=== PATIENT | male | born 1960 | race Caucasian/White ===

== ENCOUNTER 2016-08-18 07:49 | Day surgery (SDC) | payer OTHER ==
[2016-08-12 15:25] VITALS: BMI 28.0
--- NOTE | 2016-08-18 01:50 | P.GSHP ---
History of Present Illness H&P Date: 08/18/16 CHIEF COMPLAINT: GERD and colon screen HISTORY OF PRESENT ILLNESS: The patient is a 56-year-old male who presents reports gastroesophageal reflux disease and need for colon screen. Upper and lower endoscopy were offered for further evaluation and management. PAST MEDICAL HISTORY: Please see list. PAST SURGICAL HISTORY: Please see list. MEDICATIONS: Please see list. ALLERGIES: Please see list. SOCIAL HISTORY: No illicit drug use FAMILY HISTORY: No reports of Crohn disease or ulcerative colitis. REVIEW OF ORGAN SYSTEMS: CONSTITUTIONAL: No reports of fevers or chills. GI: Denies any blood in stools or constipation. PHYSICAL EXAM: VITAL SIGNS: Stable GENERAL: Well-developed pleasant in no acute distress. HEENT: No scleral icterus. Extraocular movements grossly intact. Moist buccal mucosa. NECK: Supple without lymphadenopathy. CHEST: Unlabored respirations. Equal bilateral excursions. CARDIOVASCULAR: Regular rate and rhythm. Distal 2+ pulses. ABDOMEN: Soft, nondistended. MUSCULOSKELETAL: No clubbing, cyanosis, or edema. ASSESSMENT: 1. Gastroesophageal reflux disease 2. Colon screen. PLAN: 1. Recommend proceeding with an upper and lower endoscopy Past Medical History Past Medical History: GERD/Reflux, Hypertension, Osteoarthritis (OA) History of Any Multi-Drug Resistant Organisms: None Reported Past Surgical History: Back Surgery Additional Past Surgical History / Comment(s): laminectomy x2- 1991,1994 Past Anesthesia/Blood Transfusion Reactions: Family History of Problems w/ Anesthesia Additional Past Anesthesia/Blood Transfusion Reaction / Comment(s): mother experienced memory loss returned after 2 weeks Smoking Status: Former smoker Past Alcohol Use History: Rare Additional Past Alcohol Use History / Comment(s): smoked 20 years 1ppd quit 1999 Past Drug Use History: None Reported - Past Family History Sister(s) Family Medical History: Cancer Additional Family Medical History / Comment(s): ovarian Medications and Allergies Home Medications Medication Instructions Recorded Confirmed Type Fish Oil/Dha/Epa [Fish Oil 1,200 1 each PO DAILY 08/12/16 08/12/16 History mg Fish Oil] Meloxicam [Mobic] 15 mg PO HS 08/12/16 08/12/16 History amLODIPine [Norvasc] 10 mg PO HS 08/12/16 08/12/16 History Allergies Allergy/AdvReac Type Severity Reaction Status Date / Time cephalexin [From Keflex] Allergy Rash/Hives Verified 08/12/16 15:06
[~2016-08-18 07:49] MED LIST: LACTATED RINGERS 1,000 ML IV SCH; LIDOCAINE 1% 20 ML VIAL (10MG/ML) FOR IV START INTRADERMA PRN
[2016-08-18 08:40] VITALS: TEMP 98
[2016-08-18] MEDS ORDERED: LIDOCAINE 1% 20 ML VIAL (10MG/ML) FOR IV START INTRADERMA ONE (08:40)
[2016-08-18] MEDS ORDERED: LACTATED RINGERS 1,000 ML IV ONE (08:40)
[2016-08-18] MEDS ORDERED: LIDOCAINE 1% INJ 10MG/ML (20 ML MDV) ONE (08:59)
[2016-08-18] MEDS ORDERED: GLYCOPYRROLATE 0.2 MG/ML 2 ML VIAL ONE (08:59)
[2016-08-18] MEDS ORDERED: PROPOFOL 10 MG/ML 20 ML VIAL IV ONE (08:59)
[2016-08-18 09:38] VITALS: RESP 16
--- NOTE | 2016-08-18 09:40 | P.PCN ---
Date of Procedure: 08/18/16 Description of Procedure: PREOPERATIVE DIAGNOSIS: Gastroesophageal reflux disease. POSTOPERATIVE DIAGNOSIS: Diaphragmatic hiatal hernia. Gastroesophageal reflux disease. Gastritis, antrum. OPERATION: Esophagogastroduodenoscopy with biopsies along antrum. SURGEON: Elida Ennis MD ANESTHESIA: MAC. INDICATIONS: The patient is a 56-year-old female who presents with a history of reflux disease. Benefits and risks of the procedure were described. Informed consent was obtained. DESCRIPTION: The patient was brought into the endoscopy suite and laid in the left lateral decubitus position. An Olympus gastroscope was passed along the posterior oropharynx down to the distal esophagus where the squamocolumnar junction was encountered at 37 cm from the incisors. The stomach was entered and minimal bile reflux was found. Additional findings are listed below. Biopsies with cold forceps were obtained of the antrum. The first through third portion of the duodenum was examined and unremarkable. Retroflexion of the scope confirmed Hill grade 4 lower esophageal valve. The squamocolumnar junction demostrated LA grade B erosive esophagitis. The stomach was desufflated. The patient tolerated the procedure well. FINDINGS: Squamocolumnar junction 37 cm from the incisors. Diaphragmatic hiatus, 39 cm from the incisors. Diaphragmatic hiatal hernia, 2 cm. Hill grade 4 lower esophageal valve. LA grade B erosive esophagitis. Mild gastritis. No active duodenitis. RECOMMENDATIONS: Further recommendations pending results of pathology report. Upper endoscopy as needed.
--- NOTE | 2016-08-18 09:43 | P.PCN ---
Date of Procedure: 08/18/16 Description of Procedure: PREOPERATIVE DIAGNOSIS: Colonoscopy screening. Personal history of colon polyps. POSTOPERATIVE DIAGNOSIS: Colonoscopy screening. Personal history of colon polyps. Benign colon neoplasms, multiple. OPERATION: Colonoscopy to the ileocecal valve and appendiceal orifice. Colonoscopy with multiple cold forceps biopsies. SURGEON: Elida Ennis MD. ANESTHESIA: MAC. INDICATIONS: The patient is a 56-year-old male who presents for colonoscopy screening. His last colonoscopy was 2-3 years ago. Benefits and risks were described and informed consent was obtained. DESCRIPTION OF PROCEDURE: The patient had undergone Gatorade, MiraLAX and Dulcolax prep. He had been brought into the operating room and laid in the left lateral decubitus position. After adequate intravenous sedation, the rectum was examined with 2% lidocaine jelly. No external hemorrhoids were encountered. The rectal tone was within normal limits. The prostate was smooth and without nodularity. No lesions were palpated in the rectal vault. An Olympus colonoscope was advanced until the ileocecal valve and appendiceal orifice were clearly viewed. The prep was good with visualization of the mucosal folds. The scope was removed with visualization of each mucosal fold. No scattered diverticulosis was encountered. Multiple colonic polyps were found and cold forcep biopsy to completion. No evidence of focal colitis was found. Retroflexion of the scope demonstrated grade 1 internal hemorrhoids without active bleeding or inflammation. The colon was desufflated. The patient had tolerated the procedure well. Withdrawal time was over 6 minutes. FINDINGS: Internal hemorrhoids, grade 1 No prolapsed external hemorrhoids, grade 2. No arteriovenous malformations. Removal of 4 polyps from the proximal, mid transverse colon and descending colon : - Cold forceps biopsy at 30 cm from the anal verge, 4 mm polyp. - Cold forceps biopsy at 20 cm from the anal verge, 5 mm polyp. - Cold forceps biopsy at 15 x 2 cm from the anal verge, 3 mm polyp. No focal colitis. RECOMMENDATIONS: Repeat colonoscopy in 3 years, 2019. Plan - Discharge Summary Discharge Medication List Fish Oil/Dha/Epa [Fish Oil 1,200 mg Fish Oil] 1 each PO DAILY 08/12/16 [History] Meloxicam [Mobic] 15 mg PO HS 08/12/16 [History] amLODIPine [Norvasc] 10 mg PO HS 08/12/16 [History] Follow up Appointment(s)/Referral(s): Elida Ennis MD [STAFF PHYSICIAN] - 08/31/16 ([place], please call to confirm time) Patient Instructions/Handouts: Hiatal Hernia (GEN), Gastroesophageal Reflux Disease (DC) Activity/Diet/Wound Care/Special Instructions: Follow-up colonoscopy in 3 years, 2019 Discharge Disposition: HOME SELF-CARE
[2016-08-18 10:05] VITALS: BP 132/90; PULSE 61
== END 2016-08-18 10:45 | disposition home or self-care (01) ==
LOC: ORWHC2ENDO 07:49
PROVIDERS: ATTEND Surgery Plastic and Reconstructive Surgery
DX: Z12.11 Encounter for screening for malignant neoplasm of colon (principal); Z86.010 Personal history of colon polyps; D12.6 Benign neoplasm of colon, unspecified; K63.5 Polyp of colon; K64.0 First degree hemorrhoids; K29.50 Unspecified chronic gastritis without bleeding; K21.0 Gastro-esophageal reflux disease with esophagitis; K44.9 Diaphragmatic hernia without obstruction or gangrene; I10 Essential (primary) hypertension; M19.90 Unspecified osteoarthritis, unspecified site; Z79.899 Other long term (current) drug therapy; Z88.1 Allergy status to other antibiotic agents; Z87.891 Personal history of nicotine dependence
CPT/HCPCS: 88305; 88342; 45380; 43239; J2001; J2704; 45385

== ENCOUNTER → 2019-11-14 | Day surgery (SDC) | payer BC, OTHER ==
[2019-11-12 11:37] VITALS: BMI 28.5
[~2019-11-14] MED LIST changes: +LIDOCAINE 1% (10MG/ML) FOR IV START INTRADERMA PRN; -LIDOCAINE 1% 20 ML VIAL (10MG/ML) FOR IV START INTRADERMA PRN; +PROPOFOL 10 MG/ML 20 ML VIAL IV ONE
--- NOTE | 2019-11-14 08:07 | P.GSHP ---
History of Present Illness H&P Date: 11/14/19 CHIEF COMPLAINT: Colon screen HISTORY OF PRESENT ILLNESS: The patient is a 59-year-old male who presents for colon screen. Lower endoscopy was offered for further evaluation and management. PAST MEDICAL HISTORY: Please see list. PAST SURGICAL HISTORY: Please see list. MEDICATIONS: Please see list. ALLERGIES: Please see list. SOCIAL HISTORY: No illicit drug use FAMILY HISTORY: No reports of Crohn disease or ulcerative colitis. REVIEW OF ORGAN SYSTEMS: CONSTITUTIONAL: No reports of fevers or chills. PHYSICAL EXAM: VITAL SIGNS: Stable GENERAL: Well-developed pleasant in no acute distress. HEENT: No scleral icterus. Extraocular movements grossly intact. Moist buccal mucosa. NECK: Supple without lymphadenopathy. CHEST: Unlabored respirations. Equal bilateral excursions. CARDIOVASCULAR: Regular rate and rhythm. Distal 2+ pulses. ABDOMEN: Soft, nontender, nondistended. MUSCULOSKELETAL: No clubbing, cyanosis, or edema. ASSESSMENT: 1. Colon screen. PLAN: 1. Recommend proceeding with a lower endoscopy Past Medical History Past Medical History: GERD/Reflux, Hyperlipidemia, Hypertension, Osteoarthritis (OA) History of Any Multi-Drug Resistant Organisms: None Reported Past Surgical History: Back Surgery Additional Past Surgical History / Comment(s): laminectomy x2- 1991,1994. COLONOSCOPY Past Anesthesia/Blood Transfusion Reactions: Family History of Problems w/ Anesthesia Additional Past Anesthesia/Blood Transfusion Reaction / Comment(s): mother experienced memory loss returned after 2 weeks Smoking Status: Former smoker - Past Family History Sister(s) Family Medical History: Cancer Additional Family Medical History / Comment(s): ovarian Medications and Allergies Home Medications Medication Instructions Recorded Confirmed Type Fish Oil/Dha/Epa [Fish Oil 1,200 1 each PO DAILY 08/12/16 11/12/19 History mg Fish Oil] Meloxicam [Mobic] 15 mg PO HS 08/12/16 11/12/19 History amLODIPine [Norvasc] 10 mg PO HS 08/12/16 11/12/19 History Ascorbic Acid [Vitamin C] 1,000 mg PO DAILY 11/12/19 11/12/19 History Ezetimibe [Zetia] 10 mg PO DAILY 11/12/19 11/12/19 History Gemfibrozil [Lopid] 600 mg PO AC-BID 11/12/19 11/12/19 History Omeprazole [PriLOSEC] 20 mg PO AC-BRKFST 11/12/19 11/12/19 History Allergies Allergy/AdvReac Type Severity Reaction Status Date / Time cephalexin [From Keflex] Allergy Rash/Hives Verified 11/12/19 11:29
--- NOTE | 2019-11-14 08:57 | P.PCN ---
Date of Procedure: 11/14/19 Description of Procedure: PREOPERATIVE DIAGNOSIS: Personal history of colon polyps POSTOPERATIVE DIAGNOSIS: Tubular adenoma transverse colon Tubular adenoma descending colon Tubular adenoma sigmoid colon Sigmoid diverticulosis Internal hemorrhoids, grade 2 OPERATION: Colonoscopy to the ileocecal valve and appendiceal orifice, cecum Colonoscopy with cold forceps biopsies SURGEON: Elida Ennis MD. ANESTHESIA: MAC. INDICATIONS: The patient is an 59-year-old male who presents with personal history of colon polyps. Last colonoscopy 5 years. Benefits and risks were described and informed consent was obtained. DESCRIPTION OF PROCEDURE: The patient had undergone Suprep. He had been brought into the operating room and laid in the left lateral decubitus position. After adequate intravenous sedation, the rectum was examined with 2% lidocaine jelly. The prostate was unremarkable. External hemorrhoids were encountered. The rectal tone was within normal limits. No lesions were palpated in the rectal vault. An Olympus colonoscope was advanced until the cecum, ileocecal valve and appendiceal orifice were clearly viewed. The prep was good. Sigmoid diverticulosis was encountered. Multiple colonic polyps were found and removed with cold forceps. No evidence of focal colitis was found. Retroflexion of the scope demonstrated grade 2 internal hemorrhoids without active bleeding or inflammation. The colon was desufflated. The patient had tolerated the procedure well. Withdrawal time was over 6 minutes. FINDINGS: Aronchick preparation quality scale 2 (1-5) Internal hemorrhoids, grade 2 External hemorrhoids, grade 2 No arteriovenous malformations. Sigmoid diverticulosis Removal of 8 polyps: - Cold forceps biopsy at ascending colon, 4 mm polyp. - Cold forceps biopsy at mid transverse colon, 5 mm polyp. - Cold forceps biopsy at distal transverse colon, 4 mm polyp. - Cold forceps biopsy at descending colon, 3 mm polyp. - Cold forceps biopsy at sigmoid colon, 4 mm polyp. - Cold forceps biopsy at 20 cm from the anal verge, 3 mm polyp. - Cold forceps biopsy at 18 cm from the anal verge x 2, 4 to 5 mm polyp. No focal colitis. RECOMMENDATIONS: Repeat colonoscopy in 2 years, 2021 Plan - Discharge Summary Discharge Rx Participant: No New Discharge Prescriptions: Continue amLODIPine [Norvasc] 10 mg PO HS Meloxicam [Mobic] 15 mg PO HS Fish Oil/Dha/Epa [Fish Oil 1,200 mg Fish Oil] 1 each PO DAILY Omeprazole [PriLOSEC] 20 mg PO AC-BRKFST Gemfibrozil [Lopid] 600 mg PO AC-BID Ascorbic Acid [Vitamin C] 1,000 mg PO DAILY Ezetimibe [Zetia] 10 mg PO DAILY Discharge Medication List Fish Oil/Dha/Epa [Fish Oil 1,200 mg Fish Oil] 1 each PO DAILY 08/12/16 [History] Meloxicam [Mobic] 15 mg PO HS 08/12/16 [History] amLODIPine [Norvasc] 10 mg PO HS 08/12/16 [History] Ascorbic Acid [Vitamin C] 1,000 mg PO DAILY 11/12/19 [History] Ezetimibe [Zetia] 10 mg PO DAILY 11/12/19 [History] Gemfibrozil [Lopid] 600 mg PO AC-BID 11/12/19 [History] Omeprazole [PriLOSEC] 20 mg PO AC-BRKFST 11/12/19 [History] Follow up Appointment(s)/Referral(s): Elida Ennis MD [STAFF PHYSICIAN] - As Needed Patient Instructions/Handouts: Diverticulosis (DC), Colorectal Polyps (DC), Diverticulosis Diet (GEN) Activity/Diet/Wound Care/Special Instructions: Repeat colonoscopy 3 years, 2022 Discharge Disposition: HOME SELF-CARE
[2019-11-16 08:01] VITALS: BP 132/81; PULSE 60; RESP 16; TEMP 97.7
== END | disposition home or self-care (01) ==
LOC: ORWHC2ENDO 07:44
PROVIDERS: ATTEND Surgery Plastic and Reconstructive Surgery
DX: Z12.11 Encounter for screening for malignant neoplasm of colon (principal); D12.2 Benign neoplasm of ascending colon; K63.5 Polyp of colon; D12.3 Benign neoplasm of transverse colon; D12.4 Benign neoplasm of descending colon; K57.30 Diverticulosis of large intestine without perforation or abscess without bleeding; K64.1 Second degree hemorrhoids; K64.4 Residual hemorrhoidal skin tags; Z86.010 Personal history of colon polyps; K21.9 Gastro-esophageal reflux disease without esophagitis; E78.5 Hyperlipidemia, unspecified; I10 Essential (primary) hypertension; M19.90 Unspecified osteoarthritis, unspecified site; Z88.1 Allergy status to other antibiotic agents; Z98.890 Other specified postprocedural states; Z87.891 Personal history of nicotine dependence; Z79.899 Other long term (current) drug therapy; Z79.1 Long term (current) use of non-steroidal anti-inflammatories (NSAID); Z84.89 Family history of other specified conditions; Z80.41 Family history of malignant neoplasm of ovary
CPT/HCPCS: 88305; 45380; J2704

== ENCOUNTER 2022-03-03 09:41 | Day surgery (SDC) | payer BC, OTHER ==
[2022-03-02 11:54] VITALS: BMI 28.3
--- NOTE | 2022-03-03 07:57 | P.GSHP ---
History of Present Illness H&P Date: 03/03/22 CHIEF COMPLAINT: Colon screen HISTORY OF PRESENT ILLNESS: The patient is a 62-year-old male who presents for colon screen. Lower endoscopy was offered for further evaluation and management. PAST MEDICAL HISTORY: Please see list. PAST SURGICAL HISTORY: Please see list. MEDICATIONS: Please see list. ALLERGIES: Please see list. SOCIAL HISTORY: No illicit drug use FAMILY HISTORY: No reports of Crohn disease or ulcerative colitis. REVIEW OF ORGAN SYSTEMS: CONSTITUTIONAL: No reports of fevers or chills. PHYSICAL EXAM: VITAL SIGNS: Stable GENERAL: Well-developed pleasant in no acute distress. HEENT: No scleral icterus. Extraocular movements grossly intact. Moist buccal mucosa. NECK: Supple without lymphadenopathy. CHEST: Unlabored respirations. Equal bilateral excursions. CARDIOVASCULAR: Regular rate and rhythm. Distal 2+ pulses. ABDOMEN: Soft, nontender, nondistended. MUSCULOSKELETAL: No clubbing, cyanosis, or edema. ASSESSMENT: 1. Colon screen. PLAN: 1. Recommend proceeding with a lower endoscopy Past Medical History Past Medical History: Cancer, GERD/Reflux, Hyperlipidemia, Hypertension, Osteoarthritis (OA) Additional Past Medical History / Comment(s): Hx skin cancer. History of Any Multi-Drug Resistant Organisms: None Reported Past Surgical History: Back Surgery Additional Past Surgical History / Comment(s): Laminectomy X2- 1991,1994, colonoscopy. Past Anesthesia/Blood Transfusion Reactions: Family History of Problems w/ Anesthesia Additional Past Anesthesia/Blood Transfusion Reaction / Comment(s): Mother experienced memory loss after a surgery, returned after 2 weeks after she had a blood transfusion. Past Psychological History: No Psychological Hx Reported Smoking Status: Former smoker Past Alcohol Use History: Rare Additional Past Alcohol Use History / Comment(s): Smoked for 20 years, 1ppd, quit in 1999. Past Drug Use History: None Reported - Past Family History Sister(s) Family Medical History: Cancer Additional Family Medical History / Comment(s): Ovarian cancer. Medications and Allergies Home Medications Medication Instructions Recorded Confirmed Type Fish Oil/Dha/Epa [Fish Oil 1,200 2 each PO DAILY 08/12/16 03/02/22 History mg Fish Oil] Meloxicam [Mobic] 15 mg PO HS 08/12/16 03/02/22 History amLODIPine [Norvasc] 10 mg PO HS 08/12/16 03/02/22 History Ascorbic Acid [Vitamin C] 1,000 mg PO DAILY 11/12/19 03/02/22 History Ezetimibe [Zetia] 10 mg PO DAILY 11/12/19 03/02/22 History Omeprazole [PriLOSEC] 20 mg PO AC-BRKFST 11/12/19 03/02/22 History gemfibroziL [Lopid] 600 mg PO AC-BID 11/12/19 03/02/22 History Cholecalciferol [Vitamin D3 (25 50 mcg PO DAILY 03/02/22 03/02/22 History Mcg = 1000 Iu)] Allergies Allergy/AdvReac Type Severity Reaction Status Date / Time cephalexin [From Keflex] Allergy Rash/Hives Verified 03/02/22 11:42
[~2022-03-03 09:41] MED LIST changes: -LIDOCAINE 1% (10MG/ML) FOR IV START INTRADERMA PRN; -PROPOFOL 10 MG/ML 20 ML VIAL IV ONE
[2022-03-03 09:57] VITALS: RESP 16; TEMP 97.4
[2022-03-03] MEDS ORDERED: LACTATED RINGERS 1,000 ML IV ONE ×2 (10:10→11:23)
[2022-03-03] MEDS ORDERED: PROPOFOL 10 MG/ML 20 ML VIAL IV ONE (10:58)
[2022-03-03] MEDS ORDERED: LIDOCAINE 2% INJ 20 MG/ML (2 ML VIAL) ONE (10:58)
--- NOTE | 2022-03-03 11:29 | P.PCN ---
Date of Procedure: 03/03/22 Description of Procedure: PREOPERATIVE DIAGNOSIS: Personal history of colon polyps POSTOPERATIVE DIAGNOSIS: Tubular adenoma descending colon Tubular adenoma rectal Sigmoid diverticulosis OPERATION: Colonoscopy to the ileocecal valve and appendiceal orifice, cecum Colonoscopy with cold forceps biopsy SURGEON: Elida Ennis MD. ANESTHESIA: MAC. INDICATIONS: The patient is an 62-year-old male who presents personal history of colon polyps. Last colonoscopy less than 5 years. Benefits and risks were described and informed consent was obtained. DESCRIPTION OF PROCEDURE: The patient had undergone Sutab prep. The patient had been brought into the operating room and laid in the left lateral decubitus position. After adequate intravenous sedation, the rectum was examined with 2% lidocaine jelly. The prostate was unremarkable. No external hemorrhoids were encountered. The rectal tone was within normal limits. No lesions were palpated in the rectal vault. An Olympus colonoscope was advanced until the cecum, ileocecal valve and appendiceal orifice were clearly viewed. The prep was good. Sigmoid diverticulosis was encountered. Colonic polyps were found and removed. Colitis mild without mucosal ulceration was found. Retroflexion of the scope demonstrated grade 1 internal hemorrhoids without active bleeding or inflammation. The colon was desufflated. The patient had tolerated the procedure well. Withdrawal time was over 6 minutes. FINDINGS: Aronchick preparation quality scale 2 (1-5) Internal hemorrhoids, grade 1 No external hemorrhoids No arteriovenous malformations. Sigmoid diverticulosis Removal of 3 polyps: - Cold forceps biopsy at 50 cm from the anal verge, 4 mm polyp, descending colon - Cold forceps biopsy at 40 cm from the anal verge, 3 mm polyp, descending colon - Cold forceps biopsy at 10 cm from the anal verge, 4 mm polyp, rectum No focal colitis. RECOMMENDATIONS: Repeat colonoscopy in 3 years, 2024 Plan - Discharge Summary Discharge Rx Participant: No New Discharge Prescriptions: Continue amLODIPine [Norvasc] 10 mg PO HS Meloxicam [Mobic] 15 mg PO HS Fish Oil/Dha/Epa [Fish Oil 1,200 mg Fish Oil] 2 each PO DAILY Omeprazole [PriLOSEC] 20 mg PO AC-BRKFST gemfibroziL [Lopid] 600 mg PO AC-BID Ascorbic Acid [Vitamin C] 1,000 mg PO DAILY Ezetimibe [Zetia] 10 mg PO DAILY Cholecalciferol [Vitamin D3 (25 Mcg = 1000 Iu)] 50 mcg PO DAILY Discharge Medication List Fish Oil/Dha/Epa [Fish Oil 1,200 mg Fish Oil] 2 each PO DAILY 08/12/16 [History] Meloxicam [Mobic] 15 mg PO HS 08/12/16 [History] amLODIPine [Norvasc] 10 mg PO HS 08/12/16 [History] Ascorbic Acid [Vitamin C] 1,000 mg PO DAILY 11/12/19 [History] Ezetimibe [Zetia] 10 mg PO DAILY 11/12/19 [History] Omeprazole [PriLOSEC] 20 mg PO AC-BRKFST 11/12/19 [History] gemfibroziL [Lopid] 600 mg PO AC-BID 11/12/19 [History] Cholecalciferol [Vitamin D3 (25 Mcg = 1000 Iu)] 50 mcg PO DAILY 03/02/22 [History] Follow up Appointment(s)/Referral(s): Elida Ennis MD [STAFF PHYSICIAN] - 03/16/22 Patient Instructions/Handouts: Diverticulosis (DC), Colorectal Polyps (GEN), Diverticulosis Diet (GEN), Colitis (ED) Activity/Diet/Wound Care/Special Instructions: Repeat colonoscopy in 3 years, 2024 Discharge Disposition: HOME SELF-CARE
[2022-03-03 11:39] VITALS: BP 151/93; PULSE 64
== END 2022-03-03 11:54 | disposition home or self-care (01) ==
LOC: ORWHC2ENDO 09:41
PROVIDERS: ATTEND Surgery Plastic and Reconstructive Surgery
DX: Z12.11 Encounter for screening for malignant neoplasm of colon (principal); D12.4 Benign neoplasm of descending colon; D12.8 Benign neoplasm of rectum; K57.30 Diverticulosis of large intestine without perforation or abscess without bleeding; K52.9 Noninfective gastroenteritis and colitis, unspecified; E78.5 Hyperlipidemia, unspecified; I10 Essential (primary) hypertension; M19.90 Unspecified osteoarthritis, unspecified site; Z87.891 Personal history of nicotine dependence
CPT/HCPCS: 88305; 45380; J2704; J2001